=== PATIENT | male | born 1985 | race Caucasian/White ===

== ENCOUNTER 2017-03-09 13:29 | Emergency (ER) | payer BC ==
[~2017-03-09] VITALS: Ht 165.1 cm; Wt 76.2 kg
[2017-03-09] MEDS ORDERED: SIMVASTATIN PO (13:42)
[2017-03-09] MEDS ORDERED: WELLBUTRIN PO (13:42)
[2017-03-09] MEDS ORDERED: IBUPROFEN 800 MG TABLET PO ONE (14:30)
[2017-03-09] MEDS ORDERED: IBUPROFEN 800 MG TABLET ONE (14:44)
--- NOTE | 2017-03-09 14:59 | NUR ---
Patient discharged to home in stable conditon. Written and verbal after care instructions given. Patient verbalizes understanding of instructions.
--- NOTE | 2017-03-09 15:00 | NUR ---
DR CHARLES SPOKE WITH PATIENT ABOUT TEST RESULTS WILL BE DC HOME.
== END 2017-03-09 15:10 | disposition home or self-care (01) ==
LOC: ER 13:29
DX: S16.1XXA Strain of muscle, fascia and tendon at neck level, initial encounter (principal); S50.02XA Contusion of left elbow, initial encounter; F32.9 Major depressive disorder, single episode, unspecified; E78.5 Hyperlipidemia, unspecified; Z88.0 Allergy status to penicillin; V49.9XXA Car occupant (driver) (passenger) injured in unspecified traffic accident, initial encounter; W22.10XA Striking against or struck by unspecified automobile airbag, initial encounter; Y93.89 Activity, other specified; Y99.8 Other external cause status; Y92.89 Other specified places as the place of occurrence of the external cause
CPT/HCPCS: 72125; A4663